=== PATIENT | male | born 1950 | race Caucasian/White ===

== ENCOUNTER 2021-01-21 20:02 | Emergency (ER) | payer BC ==
[~2021-01-21] VITALS: Ht 177.8 cm; Wt 91.2 kg
[2021-01-21] MEDS ORDERED: ASPIRIN 81 MG CHEW TAB PO STA (20:12)
== END 2021-01-21 21:20 | disposition home or self-care (01) ==
LOC: ER 20:10
DX: M79.89 Other specified soft tissue disorders (principal); I10 Essential (primary) hypertension; E78.5 Hyperlipidemia, unspecified; D69.3 Immune thrombocytopenic purpura; I25.2 Old myocardial infarction; Z95.5 Presence of coronary angioplasty implant and graft; Z85.828 Personal history of other malignant neoplasm of skin
CPT/HCPCS: 93971; 99282